=== PATIENT | female | born 1985 | race Two or more races ===

== ENCOUNTER 2021-01-08 18:01 | Emergency (ER) | payer OTHER ==
[2021-01-08 18:06] VITALS: BP 148/87; PULSE 77; TEMP 97.9; BMI 28.9
[2021-01-08] MEDS ORDERED: ACETAMINOPHEN 500 MG TABLET (FP) PO ONE (18:23)
[2021-01-08] MEDS ORDERED: LIDOCAINE HCL 1%, 10 MG/ML (50 mL VIAL) SQ ONE (18:26)
[2021-01-08] MEDS ORDERED: LIDOCAINE HCL 1%, 10 MG/ML (20ML VIAL) ONE (18:26)
[2021-01-08] MEDS ORDERED: ACETAMINOPHEN 500 MG TABLET (FP) ONE (19:08)
== END 2021-01-08 19:46 | disposition home or self-care (01) ==
LOC: JERFT 18:01 → JER 18:01 → JERFT 19:46
DX: S63.256A Unspecified dislocation of right little finger, initial encounter (principal); W22.8XXA Striking against or struck by other objects, initial encounter; Y92.74 Orchard as the place of occurrence of the external cause
CPT/HCPCS: 73140-TC-RT-FY; 99284-25

== ENCOUNTER 2023-06-23 10:53 | Emergency (ER) | payer OTHER ==
[2023-06-23 11:06] VITALS: BP 115/71; RESP 18; TEMP 98; BMI 27.3
[2023-06-23 13:54] VITALS: PULSE 84
== END 2023-06-23 13:54 | disposition home or self-care (01) ==
LOC: JERFT 10:53
PROC: 0HQLXZZ Repair Left Lower Leg Skin, External Approach (ICD-10-PCS; principal; 2023-06-23)
DX: S81.012A Laceration without foreign body, left knee, initial encounter (principal); W25.XXXA Contact with sharp glass, initial encounter
CPT/HCPCS: 99282-25